=== PATIENT | female | born 1990 | race Caucasian/White ===

== ENCOUNTER 2017-02-19 07:01 | Inpatient (IN) ==
[2017-02-19] MEDS ORDERED: 0.9 % Sodium Chloride 1,000 ML IVC ONE (07:20)
--- NOTE | 2017-02-19 07:24 | Emergency Department Note ---
Disposition Clinical Impression: Left flank pain, Renal colic Disposition: Admitted As Inpatient Condition: Good Referrals: NONE,PCP [Primary Care Provider] - Forms: ED Satisfaction Letter, Work/School Release Time of Disposition: 11:47 Abdominal Pain HPI - General Chief Complaint: ED Abdominal Pain Stated Complaint: kidney stones Time Seen by Provider: 02/19/17 07:07 Source: patient Mode of arrival: ambulatory Limitations: no limitations Nursing Notes Reviewed: Yes Vital Signs Reviewed: Yes - History of Present Illness HPI Narrative: 26-year-old who is 18 weeks comes in with acute left flank pain. Patient was seen yesterday and diagnosed with a possible kidney stone. Patient had an ultrasound which I did review which is essentially normal. She did however have 5-15 red cells and moderate blood in her urine on urinalysis. She' s had no vaginal bleeding. Pt Subjective Complaint: abdominal pain, flank pain Onset (ago): day(s) Consistency: constant (1) Location: L flank Pain Severity: severe Pain Scale: 8 Quality: aching Migration to: no migration Improves with: nothing Worsens with: nothing Context: other (18 weeks ) Associated symptoms: Reports: nausea Treatments prior to arrival: none - Related Data Previous Rx's Medication Instructions Recorded OxyCODONE/APAP 5/325 [Percocet 1 each PO Q6HR PRN #7 tablet 02/18/17 5/325 MG] Allergies Allergy/AdvReac Type Severity Reaction Status Date / Time No Known Allergies Allergy Verified 02/18/17 12:50 All systems ED: reviewed and negative except as stated. Constitutional: Denies: fever, chills, weakness, weight change Eyes: Denies: eye pain, eye discharge, vision change ENT ED: Denies: ear pain, throat pain, dental pain, hearing loss, epistaxis, congestion, dysphagia Cardiovascular: Denies: chest pain, palpitations, dyspnea on exertion, edema, syncope Respiratory: Denies: cough, dyspnea, wheezes, hemoptysis, stridor Gastrointestinal: Denies: abdominal pain, nausea, vomiting, diarrhea, constipation, hematemesis, melena, hematochezia Genitourinary: Denies: dysuria, frequency, hematuria, discharge Musculoskeletal: Reports: back pain. Denies: neck pain, arthralgia, myalgia Integumentary: Denies: rash, abrasion, lesions Neurological: Denies: headache, weakness, numbness, paresthesias, confusion, abnormal gait, vertigo Psychiatric: Denies: anxiety, depression, suicidal thoughts, homicidal thoughts , auditory hallucinations, visual hallucinations Endocrine: Denies: fatigue Hematological/Lymphatic: Denies: easy bleeding, easy bruising Allergic/Immunologic: Denies: facial swelling, urticaria Abdominal Pain PMH - Past Medical History Medical history: Reports: no medical history Female Surgical History: Reports: non-contributory Psychiatric history: Reports: no psych history - Social History Smoking status: Never smoker Alcohol use: Reports: none Drug use: Reports: none Physical Exam - General Limitations: no limitations General appearance: alert, in no apparent distress - Head Head exam: atraumatic, normocephalic, normal inspection - Eye Eye exam: Present: normal appearance, PERRL, EOMI - ENT ENT exam: normal exam, normal oropharynx, mucous membranes moist - Neck Neck exam: Present: normal inspection, full ROM, trachea midline - Chest Chest inspection: Present: normal inspection, symmetric chest wall rise - Respiratory Respiratory exam: Present: normal lung sounds bilaterally - Cardiovascular Cardiovascular exam: Present: regular rate, normal rhythm, normal heart sounds - Abdominal Exam Abdominal exam: Present: soft, Non-Tender. Absent: tenderness, distention, guarding, rebound, rigidity - Extremities Exam Extremities exam: Present: normal inspection, full ROM. Absent: tenderness, pedal edema - Expanded Lower Extremity Exam Neurovascular/Tendon exam: Absent: motor deficit, sensory deficit, tendon deficit Gait: observed and normal - Back Exam Back exam: Present: normal inspection, full ROM. Absent: tenderness - Neurological Exam Neurological exam: Present: alert, oriented X3 - Psychiatric Psychiatric exam: Present: normal affect, normal mood - Skin Skin exam: Present: warm, dry, intact, normal color Course - Reevaluation(s) Reevaluation #1: 26-year-old 19 weeks who comes in with left flank pain. Patient was seen yesterday and has had persistent severe pain. Show some hematuria. Ultrasound does not show a left-sided urine jet otherwise no acute findings. This likely represents a stone. She will be admitted for pain control and urology consult. Time: 11:46 - Consultations Consultation #1: Just with Dr. Goodson, he wants a repeat scan. Time: 09:02 Consultation #2: Discussed with alena Simon to use Dilaudid. Time: 09:54 Consultation #3: Discussed with siddhartha Simon. Time: 11:45 Vital Signs Temperature 98 F 02/19/17 07:02 Pulse Rate 81 02/19/17 07:02 Respiratory Rate 18 02/19/17 07:02 Blood Pressure 136/83 02/19/17 07:02 O2 Sat by Pulse Oximetry 99 02/19/17 07:02 Temperature 98 F 02/19/17 07:02 Pulse Rate 88 02/19/17 11:34 Respiratory Rate 15 02/19/17 11:34 Blood Pressure 112/59 02/19/17 11:34 O2 Sat by Pulse Oximetry 100 02/19/17 11:34 Oxygen Delivery Oxygen Delivery Room Air Abdominal Pain - Lab Data Lab results reviewed: Yes I reviewed the patient's lab results. Result diagrams: 02/19/17 08:18 02/19/17 08:18 Lab Results 02/19/17 02/19/17 Range/Units 08:18 08:18 WBC 10.2 (4.3-11.1) K/mcL RBC 4.12 (3.82-4.97) M/mcL Hgb 12.2 (11.5-15.4) g/dL Hct 35.9 (35.3-44.9) % MCV 87.1 (83.0-100.0) fL MCH 29.6 (28.0-33.3) pg MCHC 34.0 (31.6-35.5) g/dL RDW 11.9 (11.5-14.5) % Plt Count 243 (140-400) K/mcL MPV 9.6 (9.4-12.4) fL Immature Gran % 0.5 (0-4) % Seg Neutrophils % 61.9 % Lymphocytes % 29.8 % Monocytes % 6.4 % Eosinophils % 1.0 % Basophils % 0.4 % Neutrophils # 6.3 (1.6-8.9) K/mcL Lymphocytes # 3.1 (0.6-4.6) K/mcL Monocytes # 0.7 (0.0-1.3) K/mcL Eosinophils # 0.1 (0.0-0.6) K/mcL Basophils # 0.0 (0.0-0.2) K/mcL Sodium 138 (136-145) mEq/L Potassium 3.9 (3.5-4.5) mEq/L Chloride 109 (98-109) mEq/L Carbon Dioxide 21 (19-29) mEq/L BUN 7 (7-20) mg/dL Creatinine 0.61 (0.57-1.11) mg/dL Est GFR ( Amer) > 60 (> 60) Est GFR (Non-Af Amer) > 60 (> 60) BUN/Creatinine Ratio 11 (6-26) Glucose 81 (70-99) mg/dL Calculated Osmolality 283 (280-300) Calcium 9.1 (8.6-10.8) mg/dL - Radiology Data Radiology results reviewed: Yes I reviewed the patient's radiology results. Retroperitoneum Ultrasound 02/19/17 09:01 IMPRESSION: Stable appearance to the kidneys with mild right-sided pelvicaliectasis and mild left-sided pelviectasis, nonspecific but possibly on the basis of patient's gravid state. No renal stones are identified. Urinary bladder is unremarkable. Only the right ureteral jet was documented. D/ / 02/19/2017 10:59:54 Bola Nguyen MD / [email or web address] Interpreting Provider: Bola Nguyen MD
[2017-02-19] MEDS ORDERED: *HR* Morphine 2 MG/ML SYRINGE IVP ONE ×2 (07:27→08:52)
[2017-02-19] MEDS ORDERED: *HR* Promethazine 25 MG/ML VIAL IVP ONE (07:27)
[2017-02-19 08:29] LABS: Basophils % 0.4 %; Eosinophils # 0.1 K/mcL (0.0-0.6); Hematocrit 35.9 % (35.3-44.9); Hemoglobin 12.2 g/dL (11.5-15.4); Immature Granulocytes % 0.5 % (0-4); Lymphocytes # 3.1 K/mcL (0.6-4.6); Lymphocytes % 29.8 %; Mean Corpuscular Hemoglobin 29.6 pg (28.0-33.3); Mean Corpuscular Volume 87.1 fL (83.0-100.0); Mean Platelet Volume 9.6 fL (9.4-12.4); Monocytes # 0.7 K/mcL (0.0-1.3); Monocytes % 6.4 %; Neutrophils # 6.3 K/mcL (1.6-8.9); Platelet Count 243 K/mcL (140-400); Red Blood Count 4.12 M/mcL (3.82-4.97); Red Cell Distribution Width 11.9 % (11.5-14.5); Segmented Neutrophils % 61.9 %
[2017-02-19 08:48] LABS: BUN/Creatinine Ratio 11 (6-26); Blood Urea Nitrogen 7 mg/dL (7-20); Calcium 9.1 mg/dL (8.6-10.8); Carbon Dioxide 21 mEq/L (19-29); Chloride 109 mEq/L (98-109); Glucose 81 mg/dL (70-99); Osmolality,Calculated 283 (280-300); Potassium 3.9 mEq/L (3.5-4.5); Sodium 138 mEq/L (136-145); eGFR For African Americans > 60 (> 60); eGFR For Non-African Americans > 60 (> 60)
[2017-02-19] MEDS ORDERED: *HR* HYDROmorphone (PF) 1 MG/ML SYRINGE IVP ONE ×2 (09:53→12:03)
--- NOTE | 2017-02-19 13:58 | OB/GYN History & Physical ---
Date of Encounter: 02/19/17 Time of Encounter: 14:00 Assessment and Plan (1) First in adolescent 16 years of age or older in second trimester Current visit: Yes Status: Acute (2) 18 weeks gestation of Current visit: Yes Status: Acute (3) Flank pain Current visit: Yes Status: Acute (4) Nephrolithiasis Current visit: Yes Status: Acute we will put consult for urology to come and asses her History of Present Illness HPI: Ms. Yoon is a 26 year old female 1 para 0 at 18-0/7 weeks who presented to the emergency room with complaint of severe left flank pain. Patient states she started with the pain yesterday did go to the emergency room they did an ultrasound did not see anything significantly abnormal suspected possible stone advised her to increase her fluids and gave her some Percocet for pain. Patient states she did not take anything to approximately 2 AM when she woke up with severe left flank pain. She states the Percocet did not touch her pain and she got concerned and came to the emergency room. We recommended to get another ultrasound which they did perform this time it does not show a jet on the left only one on the right little bit of pelviectasis but no significant hydronephrosis. Patient states the pain at this time is a 6 out of 10 she did receive some pain medication before she came to the floor. Patient was given some morphine did not touch her pain Dilaudid seems to be helping. We will place a consultation with urology to come and assist patient to determine if anything needs to be done other than hydration. She states she is feeling the baby move no bleeding or discharge Past Med Surg Social Fam HX - Past Medical History Source: patient, old records reviewed Medical history: no medical history Psychiatric history: no psych history - Past Surgical History Surgical History: other (oral surgery) - Social History Smoking Status: Never smoker Smokeless Tobacco Status: No Alcohol use: none Drug use: none Occupational status: employed Current living situation: Home - Independent Activity Level: Independent ambulation Recent Out of Country Travel Within the Last 8 Weeks: No Exposure or Possible Exposure to Illness During Travel: No Obstetrical History - Pregnancies : 1 Para: 0 Medications and Allergies Acetaminophen/Butalbital/Caffe [Fioricet] 1 each PO Q8H PRN 02/19/17 [History] Pnv No.122/Iron/Folic Acid [ Multi Tablet] 1 tab PO DAILY 02/19/17 [ History] 3 Allergy/AdvReac Type Severity Reaction Status Date / Time No Known Allergies Allergy Verified 02/18/17 12:50 Review of System OB All systems PM: reviewed and no additional remarkable complaints except as stated Exam - Vital Signs Vital signs: Initial Vital Signs Temp Pulse Resp BP Pulse Ox 98 F 81 18 136/83 99 02/19/17 07:02 02/19/17 07:02 02/19/17 07:02 02/19/17 07:02 02/19/17 07:02 - Constitutional Constitutional: well developed, well nourished, moderate distress - HEENT HEENT: EOMI, PERRL - Neck Neck exam: full ROM - Lungs Respiratory exam: CTAB - Cardiovascular Cardiovascular exam: RRR - Abdomen Abdomen: Present: gravid (mild tenderness to the left flank) Results Result Diagrams: 02/19/17 08:18 02/19/17 08:18 All other labs normal.
[2017-02-19] MEDS ORDERED: Ringers Solution, Lactated 1,000 ML IVC SCH (14:00)
[2017-02-19] MEDS: *HR* HYDROmorphone (PF) 1 MG/ML SYRINGE IVP PRN ×4 (14:21→21:56)
--- NOTE | 2017-02-19 15:28 | Urology - Consult Note ---
Date of Encounter: 02/19/17 Time of Encounter: 15:26 - Assessment and Plan (1) Left flank pain Current Visit: Yes Status: Acute Assessment and plan: Patient has symptoms and urinalysis consistent with possible left ureteral stone. At this point I am going to continue with conservative management of increasing her fluids, encouraging by mouth intake as well as straining urine. We will follow up with patient tomorrow as well as repeating urinalysis tomorrow. Urology CN:HPI Consult date: 02/19/17 Reason for consult Urology: Other (left flank pain) Requesting physician: Sj Goodson History of present illness: Vicenta is a 26-year-old 18 week female with a history of severe left- sided flank pain for the past 1 day. Patient states that initially the pain hit her left flank and then she was able to control. She came to the emergency department yesterday where a renal ultrasound was done which did not reveal any obvious obstruction or stone. Patient presented back to the emergency department today secondary to unrelenting left-sided flank discomfort. Urinalysis done yesterday reveals moderate blood with positive RBCs. Renal ultrasound repeated today did not show any obvious change in pelviectasis bilaterally. Patient does not have a history of kidney stones. Past Med Surg Social Fam HX - Past Medical History Medical history: no medical history Psychiatric history: no psych history - Past Surgical History Surgical History: other (oral surgery) - Social History Smoking Status: Never smoker Smokeless Tobacco Status: No Alcohol use: none Drug use: none Medications and Allergies Acetaminophen/Butalbital/Caffe [Fioricet] 1 each PO Q8H PRN 02/19/17 [History] Pnv No.122/Iron/Folic Acid [ Multi Tablet] 1 tab PO DAILY 02/19/17 [ History] 3 Allergy/AdvReac Type Severity Reaction Status Date / Time No Known Allergies Allergy Verified 02/18/17 12:50 Review of Systems - Constitutional no chills, no fever(s) - EENT Nose, mouth and throat: no dizziness - Cardiovascular no chest pain - Respiratory no cough - Gastrointestinal no abdominal pain Exam Initial Vital Signs Temp Pulse Resp BP Pulse Ox 98 F 81 18 136/83 99 02/19/17 07:02 02/19/17 07:02 02/19/17 07:02 02/19/17 07:02 02/19/17 07:02 - General physical appearance Present: well developed - Eyes Present: PERRL - ENT Present: normal nares - Neck Present: no masses - Respiratory Present: normal respiratory effort - Cardiovascular Cardiovascular exam IM: RRR - Abdomen Abdomen: Present: soft - Integumentary Absent: no rash - Neurologic Absent: normal coordination - Musculoskeletal Absent: normal gait - Additional Findings Back exam reveals some flank discomfort on percussion of left flank. Urology Results - Labs 02/19/17 08:18 02/19/17 08:18 All other labs normal. - Imaging US - kidney/bladder: image reviewed Consult Discharge Plan - Plan Referrals: NONE,PCP [Primary Care Provider] -
[2017-02-19] MEDS ORDERED: *HR* OxyCODONE/APAP 10/325 TABLET PO PRN (15:35)
[2017-02-19] MEDS: *HR* OxyCODONE/APAP 5/325 TABLET PO PRN (16:31)
[2017-02-19] MEDS: *HR* Promethazine 25 MG/ML VIAL IVP PRN ×2 (16:37→21:55)
[2017-02-19] MEDS: Ringers Solution, Lactated 1,000 ML IVC SCH (23:21)
[2017-02-20] MEDS: *HR* HYDROmorphone (PF) 1 MG/ML SYRINGE IVP PRN ×6 (04:12→23:36)
[2017-02-20] MEDS: *HR* OxyCODONE/APAP 5/325 TABLET PO PRN (05:01)
[2017-02-20] MEDS: Ringers Solution, Lactated 1,000 ML IVC SCH ×3 (05:01→21:09)
--- NOTE | 2017-02-20 08:33 | Urology Progress Note ---
Date of Encounter: 02/20/17 Time of Encounter: 08:31 - Assessment and Plan (1) Left flank pain Current Visit: Yes Status: Acute Assessment and plan: will repeat ua this am. discussed ordering mri abd/pel today or tomorrow if pain does not improve. Patient would like to continue with fluids and ambulation today as her pain is controlled. if still with pain tomorrow then will order mri abd/pel without contrast. Progress Note Narrative: Patient seen this am. STill with off and on left flank pain, now more anterior with some radiation towards left groin. no fevers. slightly tachy this am. Objective Initial Vital Signs Temp Pulse Resp BP Pulse Ox 98 F 81 18 136/83 99 02/19/17 07:02 02/19/17 07:02 02/19/17 07:02 02/19/17 07:02 02/19/17 07:02 - General physical appearance Present: well developed - Abdomen Present: soft - Labs 02/19/17 08:18 02/19/17 08:18 - VTE Reasons for not Prescribing Prophylaxis: Treatment not Indicated - Low risk for VTE Consult Discharge Plan - Plan Referrals: NONE,PCP [Primary Care Provider] -
[2017-02-20] MEDS: *HR* Promethazine 25 MG/ML VIAL IVP PRN (08:39)
--- NOTE | 2017-02-20 10:38 | OB/GYN Progress Note ---
Date of Encounter: 02/20/17 Time of Encounter: 10:36 - Assessment and Plan (1) Nephrolithiasis Current Visit: Yes Status: Acute Continue pain control, IVF, ambulation as tolerated Consider further imaging per Urology (2) Flank pain Current Visit: Yes Status: Acute (3) First in adolescent 16 years of age or older in second trimester Current Visit: Yes Status: Acute (4) 18 weeks gestation of Current Visit: Yes Status: Acute Subjective - Subjective Principal diagnosis: left flank pain, nephrolithiasis Interval history: Patient states that her pain is currently well controlled. She discussed with Dr. Silva this morning that they will continue IVF and ambulation today. If pain still present tomorrow they will consider MRI abd/pel w/o contrast. She denies f/c, cp, sob, BAXTER, dizziness, n/v, dysuria. She has positive movement. Antepartum ROS: movement normal Objective - Vital Signs Vital Signs: Vital Signs Temp Pulse Resp BP Pulse Ox 02/20/17 07:55 98.1 F 91 16 108/65 96 02/20/17 04:27 98.1 F 96 20 117/65 95 02/19/17 23:30 98.5 F 82 16 105/61 95 02/19/17 20:15 98.3 F 82 16 117/71 96 02/19/17 16:52 14 02/19/17 16:25 97.5 F L 86 20 111/59 98 02/19/17 13:34 98.1 F 98 20 122/80 99 02/19/17 12:30 96 16 106/58 99 02/19/17 12:10 14 Intake and Output 02/19/17 02/20/17 02/20/17 23:59 07:59 15:59 Intake Total 1360 / 1360 1450 / 1450 Output Total 1625 / 1625 1300 / 1300 Balance -265 / -265 150 / 150 Intake: IV Fluids 1000 / 1000 1000 / 1000 Lactated Ringers 1,000 ML @ 175 1000 / 1000 1000 / 1000 mls/hr IVC .Q5H43M [facility] Rx#: [id number] Oral 360 / 360 450 / 450 Output: Urine 1625 / 1625 1300 / 1300 Other: Meal Dinner Percent of Meal Consumed 100% Weight 75.6 kg Patient Weight 02/20/17 23:59 Weight 75.6 kg - Exam FHR: auscultation normal Auscultation: bilateral: normal Abdomen: Present: normal appearance, soft, gravid Uterus: Present: normal Comments: Cardiac: RRR w/o MRG, pulses 2+ b/l UE/LE Back: left CVA tenderness Extremities: no calf tenderness, no pedal edema - Attending Attestation I examined this patient and my medical decision-making was reviewed with the Resident Physician. I agree with the documented findings, disposition and treatment plan as described except to the extent set forth below.
[2017-02-20] MEDS ORDERED: *HR* OxyCODONE/APAP 5/325 TABLET PO PRN (12:34)
[2017-02-20] MEDS: *HR* HYDROmorphone (PF) 1 MG/ML SYRINGE IM PRN ×2 (16:30→18:22)
[2017-02-20] MEDS: *HR* OxyCODONE/APAP 10/325 TABLET PO PRN (17:17)
[2017-02-20 17:51] LABS: Bilirubin,Urine Negative (Negative); Blood,Urine Negative (Negative); Clarity,Urine Clear (Clear); Color,Urine Yellow (Yellow); Glucose,Urine (UA) Normal (Normal); Ketones,Urine Negative (Negative); Leukocyte Esterase,Urine Small (Negative); Nitrite,Urine Negative (Negative); PH,Urine 6.5 pH Units (5.0-8.0); Protein,Urine Negative (Neg-Trace); Specific Gravity,Urine 1.014 (1.010-1.025); Urobilinogen,Urine Normal (Normal)
[2017-02-20 17:53] LABS: Bacteria,Urine None Seen per hpf (None-Few); Hyaline Casts,Urine None Seen per lpf (None-Few); RBC,Urine 0-3 per hpf (0-3); Squamous Epithelial Cell,Urine Many per lpf (None-Few)
[2017-02-20] MEDS ORDERED: *HR* HYDROmorphone (PF) 1 MG/ML SYRINGE IVP ONE (22:11)
[2017-02-20] MEDS ORDERED: Glycerin RECTAL Suppository RC ONE (22:22)
--- NOTE | 2017-02-20 22:27 | OB/GYN Progress Note ---
Date of Encounter: 02/20/17 Time of Encounter: 22:22 - Assessment and Plan (1) Flank pain Current Visit: Yes Status: Acute Increased pain when up to try to have BM. Patient has been constipated. Plan: -Miralax BID PRN -glycerine suppository if needed -Dilaudid 1mg Q1hr prn -Continue IVF (2) Nephrolithiasis Current Visit: Yes Status: Acute Continue pain control, IVF, ambulation as tolerated Consider further imaging per Urology (3) 18 weeks gestation of Current Visit: Yes Status: Acute Subjective - Subjective Principal diagnosis: flank pain Interval history: Patient was up to the restroom this evening and dropped to her knees in severe pain. I went to the room to evaluate patient and she was on her right side with back arched, gripping the arm rail. She said she was trying to have a BM when the pain began. She has been constipated for several days and started colace this morning. She was given 1mg dilaudid IV and the pain began to ease. Will give miralax and a glycerine suppository. Patient's symptoms seem to indicate that she may have a kidney stone. She remains on IVF with dilaudid 1mg Q1hr as needed. Antepartum ROS: new complaints (increased pain) Objective - Vital Signs Vital Signs: Vital Signs Temp Pulse Resp BP Pulse Ox 02/20/17 20:20 97.8 F 88 16 106/68 98 02/20/17 16:30 96.8 F L 110 20 143/91 100 02/20/17 07:55 98.1 F 91 16 108/65 96 02/20/17 04:27 98.1 F 96 20 117/65 95 02/19/17 23:30 98.5 F 82 16 105/61 95 Intake and Output 02/20/17 02/20/17 02/20/17 07:59 15:59 23:59 Intake Total 1450 / 1450 1840 / 1840 500 / 500 Output Total 1300 / 1300 1000 / 1000 215 / 215 Balance 150 / 150 840 / 840 285 / 285 Intake: IV Fluids 1000 / 1000 1000 / 1000 500 / 500 Lactated Ringers 1,000 ML @ 175 1000 / 1000 1000 / 1000 500 / 500 mls/hr IVC .Q5H43M [facility] Rx#: [id number] Oral 450 / 450 840 / 840 Output: Urine 1300 / 1300 1000 / 1000 215 / 215 Other: Weight 75.6 kg Patient Weight 02/20/17 23:59 Weight 75.6 kg - Exam FHR: auscultation normal Abdomen: Present: normal appearance, gravid Comments: left CVA tenderness Patient in pain, arching back and gripping side rail of bed - Labs Labs: Abnormal lab results Ur Leukocyte Esterase Small (Negative) H 02/20/17 15:45 Urine Microscopic WBC 5-15 per hpf (0-3) H 02/20/17 15:45 Ur Squamous Epith Cells Many per lpf (None-Few) H 02/20/17 15:45 Ur Culture Indicated? YES (NO) A 02/20/17 15:45
[2017-02-20] MEDS: Ondansetron 4 MG/2 ML VIAL IVP PRN (23:46)
[2017-02-21] MEDS: *HR* HYDROmorphone (PF) 1 MG/ML SYRINGE IVP PRN ×6 (01:43→08:12)
[2017-02-21] MEDS: *HR* OxyCODONE/APAP 10/325 TABLET PO PRN (02:54)
[2017-02-21] MEDS: Ringers Solution, Lactated 1,000 ML IVC SCH ×3 (02:58→18:04)
--- NOTE | 2017-02-21 07:12 | Urology Progress Note ---
Date of Encounter: 02/21/17 Time of Encounter: 07:11 - Assessment and Plan (1) Left flank pain Current Visit: Yes Status: Acute Assessment and plan: will get mri abd/pel. Progress Note Narrative: patient seen. still with pain in left flank. repeat ua without blood. Objective Initial Vital Signs Temp Pulse Resp BP Pulse Ox 98 F 81 18 136/83 99 02/19/17 07:02 02/19/17 07:02 02/19/17 07:02 02/19/17 07:02 02/19/17 07:02 - General physical appearance Present: well developed - Abdomen Present: soft - Labs 02/19/17 08:18 02/19/17 08:18 - VTE Reasons for not Prescribing Prophylaxis: Treatment not Indicated - Low risk for VTE Consult Discharge Plan - Plan Referrals: NONE,PCP [Primary Care Provider] -
[2017-02-21] MEDS: Ondansetron 4 MG/2 ML VIAL IVP PRN (08:30)
[2017-02-21] MEDS ORDERED: *HR* HYDROmorphone (PF) 1 MG/ML SYRINGE IVP PRN (09:09)
--- NOTE | 2017-02-21 09:38 | Event Note ---
Date of Encounter: 02/21/17 Time of Encounter: 09:37 nurse technician phoned RN stating pt needed order for 40mg IV lasix and NS bolus of MRI protocol. Discussed with Dr. Frias in Radiology he states lasix dose is OB decision pt may have none or a variable 20-40mg dose. Discussed with Dr. Torres order for 20mg IVP lasix.
[2017-02-21] MEDS ORDERED: Furosemide 20 MG/2 ML VIAL IVP ONE (09:41)
[2017-02-21] MEDS ORDERED: 0.9 % Sodium Chloride 500 ML IVC ONE (09:43)
[2017-02-21] MEDS: *HR* OxyCODONE Immed Rel 5 MG TABLET PO PRN ×4 (09:48→23:49)
--- NOTE | 2017-02-21 14:59 | OB/GYN Progress Note ---
Date of Encounter: 02/21/17 Time of Encounter: 12:00 - Assessment and Plan (1) 18 weeks gestation of Current Visit: Yes Status: Acute (2) Left flank pain Current Visit: Yes Status: Acute Continue new pain management of OxyIR q4 and dilaudid q2 has improved pain control Seay for comofort during IV lasix from MRI MRI ordered by urology CBC obtained. Discussed with Dr. Torres Subjective - Subjective Interval history: Pt continues to have pain and discomfort. Pt states it has improved with pain management as long as she stays ahead of the pain Antepartum ROS: no loss of fluid, no vaginal bleeding, no contractions Objective - Vital Signs Vital Signs: Intake and Output 02/20/17 02/21/17 02/21/17 23:59 07:59 15:59 Output Total 850 / 1090 Balance -850 / -90 Output: Catheter 850 / 850 Other: Stool Characteristics Normal for Patient - Exam Auscultation: bilateral: normal Abdomen: Present: normal appearance, soft, gravid (+ left CVA tenderness ) Uterus: Present: normal - Labs Labs: Abnormal lab results Ur Leukocyte Esterase Small (Negative) H 02/20/17 15:45 Urine Microscopic WBC 5-15 per hpf (0-3) H 02/20/17 15:45 Ur Squamous Epith Cells Many per lpf (None-Few) H 02/20/17 15:45 Ur Culture Indicated? YES (NO) A 02/20/17 15:45
[2017-02-22] MEDS: *HR* OxyCODONE Immed Rel 5 MG TABLET PO PRN (05:13)
[2017-02-22] MEDS: Ringers Solution, Lactated 1,000 ML IVC SCH (06:08)
--- NOTE | 2017-02-22 09:02 | Urology Progress Note ---
Date of Encounter: 02/22/17 Time of Encounter: 09:01 - Assessment and Plan (1) Left flank pain Current Visit: Yes Status: Acute Assessment and plan: at this time no urological intervention. patient can f/u as needed. unsure of etiology of pain at this time. Progress Note Narrative: patient seen. pain better. MRI reviewed. no obvious obstruction or ureteral dilation. Objective Initial Vital Signs Temp Pulse Resp BP Pulse Ox 98 F 81 18 136/83 99 02/19/17 07:02 02/19/17 07:02 02/19/17 07:02 02/19/17 07:02 02/19/17 07:02 - General physical appearance Present: well developed - Abdomen Present: soft - Labs 02/19/17 08:18 02/19/17 08:18 - VTE Reasons for not Prescribing Prophylaxis: Treatment not Indicated - Low risk for VTE Consult Discharge Plan - Plan Referrals: NONE,PCP [Primary Care Provider] -
[2017-02-22] MEDS ORDERED: *HR* OxyCODONE Immed Rel 5 MG TABLET PO PRN (09:25)
--- NOTE | 2017-02-22 09:25 | OB/GYN Progress Note ---
Date of Encounter: 02/22/17 Time of Encounter: 09:22 - Assessment and Plan (1) Flank pain Current Visit: Yes Status: Acute Pain has improved. MRI yesterday shows mild left hydronephrosis and perinephric stranding, no evidence for obstruction. No blood in repeat UA. Urology unclear of etiology of pain and are signing off. Plan: -Will stop IVF, Dilaudid -Will decrease oxycodone to 5mg Q4hr and see how patient does throughout the day -Will recheck BMP later this afternoon. -Phenergan and zofran prn for nausea Possible discharge later this evening or tomorrow based on how patient does. OARRS reviewed and is appropriate. (2) 19 weeks gestation of Current Visit: Yes Status: Acute Subjective - Subjective Principal diagnosis: left flank pain Interval history: She states that her pain is doing much better this morning. She has not required dilaudid overnight. She slept well and is resting comfortably. She did become nauseated when she tried to eat breakfast and was unable to eat. Antepartum ROS: new complaints (nausea when trying to eat), movement normal, no loss of fluid, no vaginal bleeding, no contractions Objective - Vital Signs Vital Signs: Vital Signs Temp Pulse Resp BP Pulse Ox 02/22/17 07:45 97.8 F 80 16 122/77 97 02/22/17 04:45 97.8 F 80 14 104/68 96 02/21/17 20:00 98.5 F 86 16 102/66 97 Intake and Output 02/21/17 02/22/17 02/22/17 23:59 07:59 15:59 Intake Total 1000 / 1000 Output Total 2099 / 2099 1350 / 1350 Balance -1100 / -1100 -1350 / -1350 Intake: IV Fluids 1000 / 1000 Lactated Ringers 1,000 ML @ 175 1000 / 1000 mls/hr IVC .[id number] [facility] Rx#: [id number] Output: Urine 2099 / 2100 1350 / 1350 Other: # Voids 1 Weight 77 kg Patient Weight 02/22/17 23:59 Weight 77 kg - Exam FHR: auscultation normal Auscultation: bilateral: normal Abdomen: Present: normal appearance, soft, gravid Uterus: Present: normal, firm Comments: left cva tenderness Heart RRR, no edema Lungs CTAB - Labs Labs: Abnormal lab results Ur Leukocyte Esterase Small (Negative) H 02/20/17 15:45 Urine Microscopic WBC 5-15 per hpf (0-3) H 02/20/17 15:45 Ur Squamous Epith Cells Many per lpf (None-Few) H 02/20/17 15:45 Ur Culture Indicated? YES (NO) A 02/20/17 15:45 Attestation Statement - Attestation Attestation: I examined this patient and my medical decision-making was reviewed with the Resident Physician. I agree with the documented findings, disposition and treatment plan as described except to the extent set forth below.
[2017-02-22] MEDS: Ondansetron 4 MG/2 ML VIAL IVP PRN (10:06)
--- NOTE | 2017-02-22 16:29 | Discharge Summary ---
Date of Encounter: 02/22/17 Time of Encounter: 16:27 - Discharge Diagnosis (1) 19 weeks gestation of Priority: Secondary Status: Acute (2) Left flank pain Priority: Primary Status: Acute Comments: Pt reports pain has improved. Discharge home with rx flexeril, zofran, and phenergan. Follow-up as scheduled. Precautions given. - Discharge Medications Prescriptions: Cyclobenzaprine [Flexeril] 10 mg PO Q6HR PRN #10 tablet PRN Reason: Muscle Spasm Ondansetron HCl [Zofran] 4 mg PO Q6HR PRN #30 tablet PRN Reason: Nausea Promethazine [Phenergan] 12.5 mg PO Q6HR PRN #20 tablet PRN Reason: Nausea And Vomiting at bedtime Home Medications: Acetaminophen/Butalbital/Caffe [Fioricet] 1 each PO Q8H PRN 02/19/17 [History] Pnv No.122/Iron/Folic Acid [ Multi Tablet] 1 tab PO DAILY 02/19/17 [ History] Cyclobenzaprine [Flexeril] 10 mg PO Q6HR PRN #10 tablet 02/22/17 [Rx] Docusate [Colace] 100 mg PO BID capsule 02/22/17 [Rx] Ondansetron HCl [Zofran] 4 mg PO Q6HR PRN #30 tablet 02/22/17 [Rx] Polyethylene Glycol 3350 [MiraLAX] 17 gm PO BID PRN powd.pack 02/22/17 [Rx] Promethazine [Phenergan] 12.5 mg PO Q6HR PRN #20 tablet 02/22/17 [Rx] Allergies/Adverse Reactions: 3 Allergy/AdvReac Type Severity Reaction Status Date / Time No Known Allergies Allergy Verified 02/18/17 12:50 Date of admission: 02/21/17 11:13 Primary care physician: PCP NONE Discharging clinician: Svitlana Rowley Anticipated date of discharge: 02/22/17 - Patient Status Disposition: Home, Self-Care Condition: Good Functional capacity at discharge: independent ambulation Overall status at discharge: patient is progressing back to baseline - Discharge Instructions Follow Up With: NONE,PCP [Primary Care Provider] - Ishan Hubbard MD [Partnered Physician] - - Diet and Activity Activity: increase activity as tolerated Diet: regular diet Hospital Course [employer] Reason for admission: other (flank pain) Discharge diagnosis: other (flank pain, 19 weeks gestation) Hospital course: Pt presented for left flank pain at 19 weeks gestation. Ultrasound and MRI showed mild left hydronephrosis. Pain was managed with 10mg oxycodone, dilaudid , and flexeril while inpatient. Pt reports pain has improved and will be discharged home with flexeril for pain. Comfort measures discussed. Precautions given. Time Attestation: Total time spent providing and/or coordinating discharge services: Exam - Constitutional Vitals: Temp Pulse Resp BP Pulse Ox 97.8 F 78 16 122/77 97 02/22/17 07:45 02/22/17 08:00 02/22/17 08:00 02/22/17 07:45 02/22/17 07:45 General appearance IM: A&O X 3, no acute distress - Other Additional findings: see exam from this am - VTE Reasons for not Prescribing Prophylaxis: Treatment not Indicated - Low risk for VTE
[2017-02-22 17:26] VITALS: BP 107/60
== END 2017-02-22 18:20 | disposition home or self-care (01) | DRG 781 ==
LOC: EMEROO 07:01 → 1NENUOBS 07:01
PROVIDERS: ADMIT Obstetrics & Gynecology; ATTEND Obstetrics & Gynecology

== ENCOUNTER → 2017-04-23 08:34 | Observation (INO) ==
--- NOTE | 2017-04-23 08:32 | OB/GYN Progress Note ---
Date of Encounter: 04/23/17 Time of Encounter: 08:30 - Assessment and Plan (1) 27 weeks gestation of Current Visit: No Status: Acute Follow up with MD as scheduled. (2) Tachycardia Current Visit: No Status: Acute HR now 100, Bp132/78. Pt states feels better, Discharged home told to rest and taken off work through tuesday. Subjective - Subjective Interval history: presented to ED with complaints of palptations and tachycardia. Pt states she was working and felt hot, flushed and felt her heart racing with palpitations. Pt states pulse 140's so she went to ED for evaluation. Upon arrival to ED HR 150, BP 150/101. OB called for evaluation. Pt reports good movement, denies contractions, vaginal bleeding, leaking of fluid, chest pain, or headache. Pt states she has had a busy night at work and has not had a break, or time to drink fluids. Pt has been medically cleared with HR deceasing to 100 and BP lowered here for evaluation and clearance. Antepartum ROS: movement normal, no loss of fluid, no vaginal bleeding, no contractions Objective - Vital Signs Vital Signs: Intake and Output 04/22/17 04/23/17 04/23/17 23:59 07:59 15:59 Other: Weight 82 kg Patient Weight 04/23/17 23:59 Weight 82 kg - Exam FHR: auscultation normal FHR comments: Baseline 140 appropriate for gestational age Auscultation: bilateral: normal Abdomen: Present: normal appearance Uterus: Present: normal
== END | disposition home or self-care (01) ==
LOC: 1NENULAB

== ENCOUNTER → 2021-09-24 14:30 | Observation (INO) ==
[2021-09-24 12:26] LABS: Amorphous Sediment,Urine Few per hpf (None-Few); Bacteria,Urine Few per hpf (None-Few); Bilirubin,Urine Negative (Negative); Blood,Urine Negative (Negative); Clarity,Urine Turbid (Clear); Color,Urine Yellow (Yellow); Glucose,Urine (UA) Normal (Normal); Ketones,Urine Negative (Negative); Leukocyte Esterase,Urine Negative (Negative); Mucus,Urine Few per lpf (None-Few); Nitrite,Urine Negative (Negative); PH,Urine 7.5 pH Units (5.0-8.0); Protein,Urine Trace mg/dL (Neg-Trace); Specific Gravity,Urine 1.018 (1.010-1.025); Squamous Epithelial Cell,Urine Few per hpf (None-Few); Urobilinogen,Urine Normal (Normal)
== END | disposition home or self-care (01) ==
LOC: 1NENULAB
PROVIDERS: ADMIT Registered Nurse; ATTEND Registered Nurse

== ENCOUNTER 2021-12-23 03:27 | Inpatient (IN) ==
[~2021-12-23 03:27] MED LIST: *HR* Nalbuphine 10 MG/ML AMPUL IV PRN; Famotidine 20 MG/2 ML VIAL IVP PRN; Metoclopramide 10 MG/2 ML VIAL IVP PRN; Naloxone 0.4 MG/ML INJ IVP PRN; Ondansetron 4 MG/2 ML VIAL IVP PRN; Ringers Solution, Lactated 1,000 ML IVC SCH
[2021-12-23 03:41] LABS: Basophils % 0.3 %; Eosinophils # 0.2 K/mcL (0.0-0.6); Eosinophils % 1.2 %; Hematocrit 35.2 % (35.3-44.9); Hemoglobin 11.8 g/dL (11.5-15.4); Immature Granulocytes % 0.7 % (0-4); Lymphocytes # 3.2 K/mcL (0.6-4.6); Lymphocytes % 23.2 %; Mean Corpuscular HGB Conc 33.5 g/dL (31.6-35.5); Mean Corpuscular Hemoglobin 28.6 pg (28.0-33.3); Mean Corpuscular Volume 85.2 fL (83.0-100.0); Mean Platelet Volume 9.7 fL (9.4-12.4); Monocytes # 0.9 K/mcL (0.0-1.3); Monocytes % 6.9 %; Neutrophils # 9.3 K/mcL (1.6-8.9); Platelet Count 242 K/mcL (140-400); Red Blood Count 4.13 M/mcL (3.82-4.97); Red Cell Distribution Width 12.7 % (11.5-14.5); Segmented Neutrophils % 67.7 %; White Blood Count 13.7 K/mcL (4.3-11.1)
[2021-12-23] MEDS ORDERED: EPHEDrine 50 MG/ML VIAL IVP PRN (08:21)
[2021-12-23] MEDS ORDERED: Epidural Premix (fent/bupiv) 110 ML EP SCH (08:30)
[2021-12-23 09:22] LABS: Amphetamine Screen,Urine Negative ng/mL (Cutoff=1000); Barbiturate Screen,Urine Negative ng/mL (Cutoff=200); Benzodiazepines Screen,Urine Negative ng/mL (Cutoff=200); Cannabinoid Screen,Urine Negative ng/mL (Cutoff = 50); Cocaine Screen,Urine Negative ng/mL (Cutoff= 300); Opiate Screen,Urine Negative ng/mL (Cutoff=300); Phencyclidine Screen,Urine Negative ng/mL (Cutoff=25)
[2021-12-23] MEDS ORDERED: Oxytocin 30 UNIT/503 ML BAG IVC SCH ×2 (09:45→15:56)
[2021-12-23] MEDS ORDERED: Metoprolol XL (24 HR) Succ 25 MG TAB.ER.24H PO SCH (11:00)
[2021-12-23] MEDS ORDERED: Ibuprofen 600 MG TABLET PO ONE (13:39)
[2021-12-23] MEDS ORDERED: Measles/Mumps/Rubella Vacc 0.5 ML VIAL SQ PRN (15:56)
[2021-12-23] MEDS ORDERED: Benzocaine/Menthol 56 GM AEROSOL SPRAY TP PRN (15:56)
[2021-12-23] MEDS ORDERED: Lanolin 7 G OINT...G. TP PRN (15:56)
[2021-12-23] MEDS ORDERED: Ondansetron ODT 4 MG TAB.RAPDIS SL PRN (15:56)
[2021-12-23] MEDS: Acetaminophen 325 MG TABLET PO SCH (17:00)
[2021-12-23] MEDS: Ibuprofen 600 MG TABLET PO SCH (17:00)
[2021-12-23] MEDS: *HR* OxyCODONE Immed Rel 5 MG TABLET PO PRN (21:34)
[2021-12-23 22:55] VITALS: O2SAT 97
[2021-12-24] MEDS: Acetaminophen 325 MG TABLET PO SCH ×3 (00:05→13:25)
[2021-12-24] MEDS: Ibuprofen 600 MG TABLET PO SCH ×3 (00:06→13:25)
[2021-12-24 06:56] VITALS: BP 112/75; PULSE 102; TEMP 98.3
[2021-12-24] MEDS: *HR* OxyCODONE Immed Rel 5 MG TABLET PO PRN ×2 (07:48→13:25)
[2021-12-24] MEDS ORDERED: Prenatal Vit/FA 1 EACH TABLET PO SCH (09:00)
== END 2021-12-24 14:15 | disposition home or self-care (01) | DRG 807 ==
LOC: 1NENULAB → 1NENUOBS 16:29
PROVIDERS: ADMIT Registered Nurse; ATTEND Registered Nurse